=== PATIENT | female | born 1950 | race Caucasian/White ===

== ENCOUNTER 2016-12-13 12:30 | Inpatient (IN) | payer OTHER, MEDICARE ==
[~2016-12-13] VITALS: Ht 160 cm; Wt 81.3 kg
[2016-12-13] MEDS ORDERED: HYDR-3580 PO (12:49)
[2016-12-13] MEDS ORDERED: GABA300C5 PO (12:49)
[2016-12-13] MEDS ORDERED: BACL20TA PO (12:49)
[2016-12-13] MEDS ORDERED: ATOR20TA15 PO (12:49)
[2016-12-13] MEDS ORDERED: BUPR300T PO (12:49)
[2016-12-18] MEDS ORDERED: SODIUM CHLOR 0.9% 1000 ML INJ 1,000 ML IV SCH (06:30)
[2016-12-18] MEDS ORDERED: CHLORHEXIDINE GLUCONATE 2 % 1 PACK (2 CLOTHS) TOPICAL PRN (06:30)
[2016-12-18] MEDS ORDERED: LACTATED RINGER'S 1000 ML IV PRN (06:30)
[2016-12-18] MEDS ORDERED: METOPROLOL TARTRATE 25 MG TAB PO PRN (06:30)
[2016-12-18] MEDS ORDERED: POVIDONE IODINE 5% (ANTISEPSIS KIT) 4 APPLICATIONS EACH NARE PRN (06:30)
[2016-12-18] MEDS ORDERED: INSULIN HUMAN REGULAR 1,000 UNITS/10 ML VIAL SQ PRN (06:30)
[2016-12-18] MEDS ORDERED: SODIUM CHLORID 0.9% 500 ML IV PRN (06:30)
[2016-12-18 06:49] VITALS: BP 131/70; PULSE 76; RESP 18; TEMP 98.7; O2SAT 98
[2016-12-18] MEDS ORDERED: GELFOAM SIZE 100 ONE (07:31)
[2016-12-18] MEDS ORDERED: BUPIVACAINE/EPINEPHRINE 0.5% PF 30 ML VIAL ONE (07:31)
[2016-12-18] MEDS ORDERED: THROMBIN (TOPICAL) 5,000 UNIT VIAL ONE (07:31)
[2016-12-18] MEDS ORDERED: VANCOMYCIN 1,000 MG/NS 250ML (for <70 kg) IV SCH ×2 (08:00)
[2016-12-18] MEDS ORDERED: FAMOTIDINE 20 MG/2 ML VIAL ONE (08:20)
[2016-12-18] MEDS ORDERED: MIDAZOLAM HCL 2 MG/2 ML VIAL ONE (08:20)
[2016-12-18] MEDS ORDERED: ACETAMINOPHEN 1000 MG/100 ML VIAL IV ONE (08:20)
[2016-12-18] MEDS ORDERED: fentaNYL CITRATE 250 MCG/5 ML AMP ONE (08:25)
[2016-12-18] MEDS ORDERED: KETAMINE HCL 500 MG/5 ML VIAL ONE (08:26)
[2016-12-18] MEDS ORDERED: MORPHINE SULFATE 4 MG/ML INJ ONE (08:31)
[2016-12-18] MEDS: VANCOMYCIN HCL 1000 MG VIAL ONE ×2 (09:45→11:42)
[2016-12-18] MEDS ORDERED: SODIUM CHLOR 0.9% 250 ML INJ 250 ML IV ONE (12:00)
[2016-12-18] MEDS ORDERED: ONDANSETRON HCL 4 MG/2 ML VIAL IV PUSH ONE (12:00)
[2016-12-18] MEDS ORDERED: ePHEDrine/NS 25 MG/5 ML SYR IV ONE (12:00)
[2016-12-18] MEDS ORDERED: PROPOFOL 200 MG/20 ML AMP IV ONE (12:00)
[2016-12-18] MEDS ORDERED: MAGNESIUM SULFATE 1 GM/2 ML VIAL IV ONE (12:00)
[2016-12-18] MEDS ORDERED: PHENYLEPH/NS 1000 MCG/10 ML SYR IV ONE (12:00)
[2016-12-18] MEDS ORDERED: MENTHOL LOZENGE BUCCAL PRN (12:15)
[2016-12-18] MEDS ORDERED: NALOXONE HCL 0.4 MG/ML AMP IV PRN (12:15)
[2016-12-18] MEDS ORDERED: ALUMINUM/MAGNESIUM/SIMETH 30 ML CUP PO PRN (12:15)
[2016-12-18] MEDS ORDERED: RESP: ALBUTEROL 2.5 MG/3 ML NEB (PRN) NEB (12:15)
[2016-12-18] MEDS ORDERED: CYCLOBENZAPRINE HCL 10 MG TAB PO PRN (12:15)
[2016-12-18] MEDS ORDERED: SODIUM CHLORIDE 0.9% FLUSH 10 ML FLUSH IV FLUSH PRN (12:15)
[2016-12-18] MEDS ORDERED: cloNIDine HCL 0.1 MG TAB PO PRN (12:15)
[2016-12-18] MEDS ORDERED: diphenhydrAMINE HCL 50 MG/ML VIAL IV PRN (12:15)
[2016-12-18] MEDS ORDERED: ZOLPIDEM TARTRATE 5 MG TAB PO PRN (12:15)
[2016-12-18] MEDS ORDERED: CALCIUM GLUCONATE INJ 1 GM in SODIUM CHLORIDE 0.9% INJ 100 ML IV PRN (12:15)
[2016-12-18] MEDS ORDERED: METOCLOPRAMIDE HCL 10 MG/2 ML VIAL IVS PRN (12:15)
[2016-12-18] MEDS ORDERED: ACETAMINOPHEN 325 MG TAB PO PRN (12:15)
[2016-12-18] MEDS ORDERED: MORPHINE SULFATE 30 MG/30 ML PCA IV SCH (12:15)
[2016-12-18] MEDS ORDERED: MAGNESIUM SULFATE INJ 2 GM in SODIUM CHLORIDE 0.9% INJ 100 ML IV PRN (12:15)
[2016-12-18] MEDS ORDERED: POTASSIUM CHLOR 20 MEQ PREMIX 100 ML IV PRN (12:15)
--- NOTE | 2016-12-18 12:16 | PD.OP ---
MD David Dale MD Operative Report Date of Surgery: Dec 18, 2016 Preoperative Diagnosis: Intractable low back pain with neurogenic claudication; severe L4-5 residual spinal stenosis from facet and ligamentum flavum hypertrophy along with degenerative disc disease and grade 1 spondylolisthesis Postoperative Diagnosis: Same Procedure: Lumbar L4-5 transforaminal interbody fusion; redo L4-5 decompressive laminectomies; L4-5 pedicle screw fixation; L4-5 interbody cage placement; microsurgical technique Anesthesia: Gen. endotracheal by Javier Moore Surgeon: Cam Harry M.D. Manager Welding(s): Chelly Urban Operation and Findings: Following initiation of general endotracheal anesthesia, the patient had a Gabriel catheter placed along with sequential compression devices. A gram of vancomycin was administered intravenously and he was turned in a prone position on a Shiva frame, on a Ever table, and all pressure points adequately padded. The lumbosacral region was then prepped with Chloraprep and sterilely draped with Ioban along the usual sterile draping. A midline skin incision using the previous incision site was then made extending from the L4-L5 level after infiltrating the skin with 0.5% Marcaine with epinephrine solution extending down through the fascia. The muscle fibers were split using avascular fatty plane and detached from the underlying facets, transverse process and lateral portion of lamina on the left side and a self-retaining retractor used for exposure. Intraoperative fluoroscopy was also used for level of confirmation along with microscope magnification for further dissection. There was significant facet and ligamentum flavum hypertrophy noted at the L4-5 levels and I did not identify any previous laminectomy. Left L4-5 facet was resected with a drill bit along with the lamina and there was severe foraminal and lateral recess stenosis from hypertrophied ligamentum flavum and facet which were decompressed bilaterally through the unilateral approach. There was significant disc height collapse along with disc protrusion also leading to the foraminal stenosis. Epidural hemostasis was achieved with bipolar cautery and Gelfoam with thrombin. Subsequently entered into the disc space at the L4-5 level with a #15 blade and lisa were used for discectomy. I then placed PEEK cage packed with local autograft bone and more local autograft bone was packed adjacent to the cage in interspace for added interbody fusion. With placement of the cage, I was able to distract the interspace and opened up the foramen further bilaterally. Subsequently in order to facilitate the fusion and provide stabilization, pedicle screw fixation was undertaken using Boody spine screws on entry point at the left L4-5 levels at the junction of the transverse process and facet. Subsequently using AP and lateral fluoroscopy tap and screw placement. The screws were then connected with a slim and locked in place with caps. The construct appeared very secure at this point. Identify the L3-4 Coflex interspinous device which was secure and was left in place to avoid any further soft tissue and bone disruption at the adjacent level. The area was then copiously irrigated with Vancomycin solution and powder. The retractors were removed and the bipolar cautery used for hemostasis. The muscle fascia was then approximated using 2-0 Vicryl interrupted stitches and then 3-0 Vicryl subcuticular stitches also placed in interrupted fashion. The final skin closure was completed with savannah. A sterile dressing was then applied. The patient then turned in supine position, extubated and taken to recovery room. There were no intraoperative complications. All sponge and needle counts were correct at the end of procedure. Estimated blood loss about 100 ml. Cam Harry MD Dec 18, 2016 12:16
[2016-12-18] MEDS ORDERED: *morphine SULFATE 8 MG/ML PERIprocedure ONLY ONE ×2 (12:19→12:34)
[2016-12-18] MEDS: GABAPENTIN 300 MG CAP PO SCH ×2 (13:00→16:57)
[2016-12-18] MEDS: NS + KCL 20 MEQ INJ 1,000 ML IV SCH ×2 (13:00→21:08)
[2016-12-18 13:11] LABS: AUTOMATED NEUTROPHIL # 6.4 TH/MM3 (1.8-7.7); BASOPHIL % 0.4 % (0.0-2.0); EOSINOPHIL # 0.1 TH/MM3 (0-0.4); EOSINOPHIL % 0.7 % (0.0-4.0); HEMATOCRIT 35.5 % (35.0-46.0); HEMO FLAGS DIFF FINAL; LYMPH % 28.3 % (9.0-44.0); MEAN CELL VOLUME 83.4 FL (80.0-100.0); MEAN CORPUSCULAR HEMOGLOBIN 26.5 PG (27.0-34.0); MEAN CORPUSCULAR HGB CONC 31.8 % (32.0-36.0); MONO % 9.9 % (0.0-8.0); NEUT % 60.7 % (16.0-70.0); PLATELET COUNT 270 TH/MM3 (150-450); RED BLOOD COUNT 4.26 MIL/MM3 (4.00-5.30); RED CELL DISTRIBUTION WIDTH 14.2 % (11.6-17.2); WHITE BLOOD COUNT 10.5 TH/MM3 (4.0-11.0)
[2016-12-18 13:44] LABS: BICARBONATE 28.4 MEQ/L (21.0-32.0); MAGNESIUM 2.7 MG/DL (1.5-2.5); POTASSIUM 3.8 MEQ/L (3.5-5.1)
[2016-12-18] MEDS ORDERED: DO NOT ADM ANY ANTICOAGULANT DRUGS PRN (13:45)
--- NOTE | 2016-12-18 13:48 | RADRPT ---
EXAM DATE/TIME: 12/18/2016 08:58 [facility] COMPARISON: No previous studies available for comparison. INDICATIONS : Fusion L4,L5 with screws and slim placement. MEDICAL HISTORY : SURGICAL HISTORY : None. ENCOUNTER: Initial ACUITY: 1 day PAIN SCORE: Non-responsive. LOCATION: Lumbar spine. CONCLUSION: Fluoroscopic images with postsurgical changes with fusion of the left at L4-5. Intervertebral disc de vice at L4-5. There is a device in between the spinous processes at L3-4. Edilson Roth MD on December 18, 2016 at 13:45 Board Certified Radiologist. This report was verified electronically.
[2016-12-18] MEDS: PCA - TOTAL MG MORPHINE DELIVERED PER SHIFT SCH ×2 (14:00→22:00)
[2016-12-18 15:01] VITALS: BP 124/66; PULSE 83; RESP 18; TEMP 95.2; O2SAT 98
[2016-12-18] MEDS: ONDANSETRON HCL 4 MG/2 ML VIAL IV PRN (16:58)
[2016-12-18 18:07] VITALS: O2SAT 98
[2016-12-18 20:10] VITALS: BP 141/66; PULSE 80; RESP 18; TEMP 96.5; O2SAT 100
[2016-12-18] MEDS: BACLOFEN 20 MG TAB PO SCH (21:00)
[2016-12-18] MEDS: SODIUM CHLORIDE 0.9% FLUSH 10 ML FLUSH IV FLUSH SCH (21:00)
[2016-12-18] MEDS: DOCUSATE SODIUM 100 MG CAP PO SCH (21:08)
[2016-12-18] MEDS: MAGNESIUM HYDROXIDE SUSP 30 ML CUP PO PRN (21:11)
[2016-12-19] VITALS (9 sets, daily range): BP systolic 101–197; BP diastolic 56–68; PULSE 87–109; RESP 15–18; TEMP 98–100.3; O2SAT 92–99
[2016-12-19] MEDS: BACLOFEN 20 MG TAB PO SCH ×2 (02:00→19:49)
[2016-12-19] MEDS: PCA - TOTAL MG MORPHINE DELIVERED PER SHIFT SCH ×2 (05:31→19:50)
[2016-12-19] MEDS: ONDANSETRON HCL 4 MG/2 ML VIAL IV PRN (05:31)
[2016-12-19] MEDS: ACETAMINOPHEN/HYDROcodone 325 MG/10 MG TAB PO PRN ×6 (05:39→22:30)
[2016-12-19] MEDS: GABAPENTIN 300 MG CAP PO SCH ×3 (07:52→17:49)
[2016-12-19] MEDS: DOCUSATE SODIUM 100 MG CAP PO SCH ×2 (07:52→19:49)
[2016-12-19] MEDS: POLYETHYLENE GLYCOL 17 GM PKG PO SCH (07:52)
[2016-12-19] MEDS: ATORVASTATIN 20 MG TAB PO SCH (07:53)
[2016-12-19] MEDS: PANTOPRAZOLE SOD 40 MG DELAYED RELEASE TAB PO SCH (07:53)
[2016-12-19] MEDS: buPROPion HCL 150 MG SUSTAINED RELEASE TAB PO SCH ×2 (07:53→19:49)
[2016-12-19] MEDS: NS + KCL 20 MEQ INJ 1,000 ML IV SCH (08:05)
[2016-12-19] MEDS: SODIUM CHLORIDE 0.9% FLUSH 10 ML FLUSH IV FLUSH SCH ×2 (09:00→19:49)
--- NOTE | 2016-12-19 12:52 | HHI.NSPN ---
(Edilson Taylor) History Chief Complaint: Incisional pain. (Edilson Taylor) Interval History Pt s/p Lumbar L4-5 transforaminal interbody fusion; redo L4-5 decompressive laminectomies; L4-5 pedicle screw fixation; L4-5 interbody cage placement on . She states she had a rough night with pain and nausea but is feeling better today. Sitting up in chair. 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 No radiculopathy or paresthesias in LEs. (Edilson Taylor) Review of Systems General: Negative for: fever, chills, insomnia Respiratory: Negative for: shortness of breath, cough, sputum Cardiovascular: Negative for: chest pain Gastrointestinal: Negative for: nausea, vomitting, diarrhea, constipation ( Edilson Taylor) Exam Results Vital Signs Date Time Temp Pulse Resp B/P Pulse Ox O2 Delivery O2 Flow Rate FiO2 12/19/16 11:28 98.8 91 18 101/57 93 12/19/16 07:55 Nasal Cannula 2.00 Intake and Output 12/18/16 12/18/16 12/19/16 08:00 16:00 00:00 Intake Total 1100 ml 1050 ml Output Total 600 ml 300 ml Balance 500 ml 750 ml (Edilson Taylor) Physical Examination Resp: CTA bilaterally Heart: NSR no murmurs Abd: Soft positive bs Skin: bandage changed by RN reports clean and dry. Muscle: Pt sitting up in chair. 5/5 strength in LEs. Neuro: Pt awake and alert. Follows commands well. Speech clear and appropriate. (Edilson Taylor) Lab, Micro, Other Results Last Impressions Lumbar Spine X-Ray 12/18/16 0000 Signed Impressions: Service Date/Time: Sunday, December 18, 2016 08:58 - CONCLUSION: Fluoroscopic images with postsurgical changes with fusion of the left at L4-5. Intervertebral disc device at L4-5. There is a device in between the spinous processes at L3- 4. Edilson Roth MD 12/18/16 12/18/16 12/19/16 15:00 23:00 07:00 Intake Total 1100 ml 1050 ml 987 ml Output Total 600 ml 300 ml 1500 ml Balance 500 ml 750 ml -513 ml Intake Oral 360 ml 480 ml IV Total 100 ml 690 ml 507 ml Other 1000 ml Output Urine Total 450 ml 300 ml 1500 ml Estimated Blood Loss 150 ml # Bowel Movements 0 0 (Edilson Taylor) Medical Decision Making Impression and Plan A: 66 y/o FM s/p Lumbar L4-5 transforaminal interbody fusion; redo L4-5 decompressive laminectomies; L4-5 pedicle screw fixation; L4-5 interbody cage placement on 12/18/16. 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 (Edilson Taylor) Attending Statement The exam, history, and the medical decision-making described in the above note were completed with the assistance of the mid-level provider. I reviewed and agree with the findings presented. I attest that I had a [id number] encounter with the patient on the same day, and personally performed and documented my assessment and findings in the medical record. Overall doing well with incisional pain controlled. Improved lower extremity symptoms. Plan fdc home placement on Saturday. (Cam Harry MD) Edilson Taylor Dec 19, 2016 12:52 Cam Harry MD Dec 19, 2016 14:59
[2016-12-19] MEDS ORDERED: CYCLOBENZAPRINE HCL 10 MG TAB PO ONE (14:00)
[2016-12-19] MEDS: CYCLOBENZAPRINE HCL 10 MG TAB PO SCH (22:14)
[2016-12-20] MEDS: ACETAMINOPHEN/HYDROcodone 325 MG/10 MG TAB PO PRN ×4 (02:07→14:49)
[2016-12-20 04:00] VITALS: BP 108/52; PULSE 91; RESP 16; TEMP 99.1; O2SAT 93
[2016-12-20] MEDS: PCA - TOTAL MG MORPHINE DELIVERED PER SHIFT SCH ×2 (05:16→13:36)
[2016-12-20] MEDS: CYCLOBENZAPRINE HCL 10 MG TAB PO SCH ×2 (05:16→14:48)
[2016-12-20] MEDS: NS + KCL 20 MEQ INJ 1,000 ML IV SCH (06:27)
[2016-12-20] MEDS: buPROPion HCL 150 MG SUSTAINED RELEASE TAB PO SCH (07:57)
[2016-12-20] MEDS: DOCUSATE SODIUM 100 MG CAP PO SCH (07:57)
[2016-12-20] MEDS: PANTOPRAZOLE SOD 40 MG DELAYED RELEASE TAB PO SCH (07:57)
[2016-12-20] MEDS: GABAPENTIN 300 MG CAP PO SCH ×2 (07:57→13:00)
[2016-12-20] MEDS: MAGNESIUM HYDROXIDE SUSP 30 ML CUP PO PRN (07:57)
[2016-12-20] MEDS: POLYETHYLENE GLYCOL 17 GM PKG PO SCH (07:57)
[2016-12-20] MEDS: SODIUM CHLORIDE 0.9% FLUSH 10 ML FLUSH IV FLUSH SCH (07:58)
[2016-12-20] MEDS: ATORVASTATIN 20 MG TAB PO SCH (07:58)
[2016-12-20 08:00] VITALS: BP 120/56; PULSE 76; RESP 18; TEMP 96.6; O2SAT 94
--- NOTE | 2016-12-20 09:23 | HHI.NSPN ---
(Edilson Taylor) History Chief Complaint: Incisional pain. (Edilson Taylor) Interval History Pt s/p Lumbar L4-5 transforaminal interbody fusion; redo L4-5 decompressive laminectomies; L4-5 pedicle screw fixation; L4-5 interbody cage placement on . She states she had a rough night with pain and nausea but is feeling better today. Sitting up in chair. 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 No radiculopathy or paresthesias in LEs. 12/20/16: Pt awake and alert. Sitting up in chair. Complains of incisional discomfort but controlled. No radiculopathy or paresthesias in LEs. Looking forward to rehab. Constipated. (Edilson Taylor) Review of Systems General: Negative for: fever, chills, insomnia Respiratory: Negative for: shortness of breath, cough, sputum Cardiovascular: Negative for: chest pain Gastrointestinal: Positive for: constipation (No pain took MOM this am.), Negative for: nausea, vomitting, diarrhea (Edilson Tayolr) Exam Results Vital Signs Date Time Temp Pulse Resp B/P Pulse Ox O2 Delivery O2 Flow Rate FiO2 12/20/16 07:18 Room Air 12/20/16 04:00 99.1 91 16 108/52 93 12/19/16 20:39 2.00 Intake and Output 12/19/16 12/19/16 12/20/16 08:00 16:00 00:00 Intake Total 987 ml 750 ml 480 ml Output Total 1500 ml Balance -513 ml 750 ml 480 ml (Edilson Taylor) Physical Examination Resp: CTA bilaterally Heart: NSR no murmurs Abd: Soft positive bs Skin: Incision clean and dry. Mild blood on bandage. new bandage placed. [place] in place. Muscle: Pt sitting up in chair. 5/5 strength in LEs. Neuro: Pt awake and alert. Follows commands well. Speech clear and appropriate. (Edilson Taylor) Lab, Micro, Other Results 12/19/16 12/19/16 12/20/16 15:00 23:00 07:00 Intake Total 750 ml 480 ml 250 ml Balance 750 ml 480 ml 250 ml Intake Oral 750 ml 480 ml 250 ml # Voids 6 4 2 # Bowel Movements 0 0 0 (Edilson Taylor) Medical Decision Making Impression and Plan A: 66 y/o FM s/p Lumbar L4-5 transforaminal interbody fusion; redo L4-5 decompressive laminectomies; L4-5 pedicle screw fixation; L4-5 interbody cage placement on 12/18/16. P: Dulcolax if no BM with mom. PT Continue with pain control and antiemetics prn. Anticipate rehab placement tomorrow am (Edilson Taylor) Attending Statement The exam, history, and the medical decision-making described in the above note were completed with the assistance of the mid-level provider. I reviewed and agree with the findings presented. I attest that I had a [id number] encounter with the patient on the same day, and personally performed and documented my assessment and findings in the medical record. (Cam Harry MD) Edilson Taylor Dec 20, 2016 09:22 Cam Harry MD Dec 20, 2016 09:51
[2016-12-20] MEDS ORDERED: HYDR-3583 PO (09:27)
[2016-12-20] MEDS ORDERED: BISACODYL 10 MG SUPP RECTAL ONE (10:00)
[2016-12-20 12:00] VITALS: BP 114/66; PULSE 91; RESP 18; TEMP 98.6; O2SAT 94
[2016-12-20 13:23] VITALS: O2SAT 96
[2016-12-20 16:00] VITALS: BP 150/73; PULSE 107; RESP 18; TEMP 99.9; O2SAT 95
[2016-12-24] MEDS ORDERED: HYDR-3583 PO (14:42)
[2016-12-27] MEDS ORDERED: CEPH-460 PO (12:14)
[2016-12-27] MEDS ORDERED: BACL10TA PO (12:14)
[2016-12-27] MEDS ORDERED: FENT25T T-DERMAL (17:27)
== END 2016-12-20 18:24 | DRG 460 ==
LOC: HSDI 12-18 06:00 → N06A 12-18 14:30
PROVIDERS: ADMIT Neurological Surgery; ATTEND Neurological Surgery
PROC: 0ST20ZZ Resection of Lumbar Vertebral Disc, Open Approach (ICD-10-PCS; 2016-12-18)
PROC: 0SG00AJ Fusion of Lumbar Vertebral Joint with Interbody Fusion Device, Posterior Approach, Anterior Column, Open Approach (ICD-10-PCS; principal; 2016-12-18 08:32)
DX: M48.06 Spinal stenosis, lumbar region (principal); K59.00 Constipation, unspecified; M51.26 Other intervertebral disc displacement, lumbar region; M43.16 Spondylolisthesis, lumbar region
CPT/HCPCS: 36415; 72100; 76000; 80048; 83735; 85025; 86850; 86900; 86901; 94150; C1713; J0131; J0690; J2250; J2270; J2370; J2405; J3010; J3370; J3475; J3480; J7050; J7120; L0627

== ENCOUNTER → 2016-12-13 | Outpatient (CLI) | payer OTHER ==
[~2016-12-13] MED LIST: ATOR20TA15 PO; BACL10TA PO; BACL20TA; BACL20TA PO; BUPR150T5; BUPR300T; BUPR300T PO; CEPH-460 PO; FENT25T T-DERMAL; GABA100C4; GABA300C5 PO; HYDR-3580; HYDR-3580 PO; HYDR-3583 PO
== END ==
LOC: CPRE 12:24
PROVIDERS: ATTEND Neurological Surgery
DX: Z01.812 Encounter for preprocedural laboratory examination (principal); M43.16 Spondylolisthesis, lumbar region; M48.06 Spinal stenosis, lumbar region; M43.06 Spondylolysis, lumbar region; M51.36 Other intervertebral disc degeneration, lumbar region